=== PATIENT | female | born 1985 | race Caucasian/White ===

== ENCOUNTER 2018-10-24 12:25 | Inpatient (IN) | payer OTHER ==
[~2018-10-24] VITALS: Ht 170.2 cm; Wt 81.6 kg
[2018-10-24 12:56] VITALS: Ht 170.2 cm; Wt 81.6 kg
--- NOTE | 2018-10-24 17:31 | ERD ---
ER Documentation Chief Complaint Chief Complaint pelvic pain dx ectopic yesterday, 7 weeks 2 days HPI 33-year-old female Ab1 presenting for ectopic that was diagnosed at [facility]. She started having pelvic pain 2 days ago. She went to the outside hospital where an ultrasound was done and she was diagnosed with ectopic. However she did not like the surgeon there, so she signed out AMA. She states her pain has improved. She only has mild aching pain in her right pelvis, improved when not moving. Worsened by walking. No associated fever, chills, nausea, vomiting, discharge or vaginal bleeding. ROS All systems reviewed and are negative except as per history of present illness. PMhx/Soc Medical and Surgical Hx: pt denies Medical Hx, pt denies Surgical Hx Hx Alcohol Use: No Hx Substance Use: No Hx Tobacco Use: Yes Smoking Status: Current every day smoker FmHx Family History: No diabetes Physical Exam Vitals Vital Signs Date Temp Pulse Resp B/P (MAP) Pulse Ox O2 O2 Flow FiO2 Time Delivery Rate 10/24/18 98.4 69 18 117/73 96 Room Air 16:20 (88) 10/24/18 98.4 90 18 117/73 96 12:56 (88) Physical Exam Const: No acute distress Head: Atraumatic Eyes: Normal Conjunctiva ENT: Normal External Ears, Nose and Mouth. Neck: Full range of motion. No meningismus. Resp: Clear to auscultation bilaterally Cardio: Regular rate and rhythm, no murmurs Abd: Soft, non tender, non distended. No palpable masses. Normal bowel julieth nds Skin: No petechiae or rashes Back: No midline or flank tenderness Ext: No cyanosis, or edema Neur: Awake and alert Psych: Normal Mood and Affect Result Diagram: 10/24/18 1634 10/24/18 1634 Results 24 hrs Laboratory Tests Test 10/24/18 16:34 White Blood Count 11.8 10^3/ul Red Blood Count 4.72 10^6/ul Hemoglobin 14.2 g/dl Hematocrit 39.4 % Mean Corpuscular Volume 83.5 fl Mean Corpuscular Hemoglobin 30.1 pg Mean Corpuscular Hemoglobin Concent 36.0 g/dl Red Cell Distribution Width 12.3 % Platelet Count 337 10^3/UL Mean Platelet Volume 10.6 fl Immature Granulocytes % 0.400 % Neutrophils % 54.9 % Lymphocytes % 30.9 % Monocytes % 7.6 % Eosinophils % 5.4 % Basophils % 0.8 % Nucleated Red Blood Cells % 0.0 /100WBC Immature Granulocytes # 0.050 10^3/ul Neutrophils # 6.5 10^3/ul Lymphocytes # 3.6 10^3/ul Monocytes # 0.9 10^3/ul Eosinophils # 0.6 10^3/ul Basophils # 0.1 10^3/ul Nucleated Red Blood Cells # 0.0 10^3/ul Sodium Level 141 mmol/L Potassium Level 4.0 mmol/L Chloride Level 107 mmol/L Carbon Dioxide Level 23 mmol/L Anion Gap 11 Blood Urea Nitrogen 11 mg/dl Creatinine 0.66 mg/dl Est Glomerular Filtrat Rate mL/min > 60 mL/min Glucose Level 86 mg/dl Calcium Level 9.4 mg/dl Beta HCG, Quantitative 90522.0 mIU/ml Current Medications Medications Dose Sig/Ever Start Time Status Last (Trade) Ordered Route PRN Stop Time Admin Dose Reason Admin Ondansetron 4 mg BRIDGE ORDER 10/24/18 HCl (Zofran PRN IV 18:00 10/25/18 Inj) NAUSEA/VOMITI 17:59 NG 650 mg ER BRIDGE 10/24/18 Acetaminophen PRN PO 18:00 10/25/18 (Tylenol .MILD PAIN 17:59 Tab) 1-3 OR TEMP Procedures/MDM EMERGENT LABS AND DIAGNOSTIC STUDIES: Lab Results above were reviewed and interpreted by me. CBC: no anemia or evidence of infection BMP: No e/o clinically significant electrolyte abnormality severe acidosis, alkalosis, renal failure, diabetic ketoacidosis Beta-hCG pending Radiology Results as interpreted by Radiology below were reviewed by Roseline Garcia MD: Pelvic ultrasound shows a viable 8-week ectopic in the right adnexa with no free fluid Initial Nursing notes reviewed. Previous Medical Records requested via the Electronic Health Record. EMERGENCY DEPARTMENT COURSE / MEDICAL DECISION MAKING: Patient is presenting with of right-sided ectopic , hemodynamically stable with no evidence of rupture. Patient will require admission for surgery. Spoke with the DEVELOPMENTAL SERVICES WORKER on-call who has accepted her for admission. Accepting Care Team: Current data and ongoing care discussed. Time: Time of admission Primary Provider: Dr. Carcamo Outstanding Data: none Departure Diagnosis: Primary Impression: Ectopic Location of ectopic : tubal Intrauterine status: without intrauterine Laterality: right Qualified Codes: O00.101 - Right tubal without intrauterine Condition: Serious YASMANY GARCIA MD Oct 24, 2018 17:31
[2018-10-24] MEDS ORDERED: ACETAMINOPHEN 325 MG TAB PO PRN (18:00)
[2018-10-24] MEDS ORDERED: ONDANSETRON 4 MG INJ IV PRN (18:00)
[2018-10-24 20:00] VITALS: BP 105/56; PULSE 60; RESP 17
[2018-10-24] MEDS ORDERED: DEXTROSE 5%-0.45% NACL 1,000 ML IV SCH (23:00)
[2018-10-24] MEDS ORDERED: DEXTROSE 5%-LR 1,000 ML IV SCH (23:30)
[2018-10-25] VITALS (17 sets, daily range): BP systolic 95–115; BP diastolic 49–76; PULSE 72–95; RESP 18–28
--- NOTE | 2018-10-25 03:05 | HP ---
Date/Time of Note Date/Time of Note DATE: 10/24/18 TIME: 23:17 Assessment/Plan VTE Prophylaxis Risk score (from Ns)>0 risk: 2 SCD applied (from Ns): No SCD contraindicated: low risk/ambulating Pharmacological prophylaxis: NA/contraindicated Pharm contraindication: low risk/ambulating Lines/Catheters IV [facility]from [facility] Saline Lock Central line still needed: No Urinary Cath still in place: No Assessment/Plan Hospital Course Right lower abdominal pain, ectopic and right side. Size of ectopic gestation more than 3.5 cm with presence of echo. Patient currently hemodynamically stable. Discussed regarding management. Due to the size of ectopic gestation more than 3.5 cm and echo recommended surgical management. Patient is not a good candidate for medical management. She does not have any regional sales manager as outpatient to have a follow-up, does not appear to be reliable to have a follow-up with serial hCG. However I discussed about medical management option as well however due to size of ectopic gestation not a good candidate for medical management. Procedure including laparoscopic right salpingostomy possible salpingectomy discussed with the patient. Risk and benefit of procedure including risk of infection, bleeding, risk of anesthesia, risk of blood transfusion including but not limited to blood borne infection including HIV, hepatitis B and C and transfusion reaction discussed with patient in detail Patient verbalized understanding. She desires to proceed with surgical management versus methotrexate treatment. All questions were answered to patient's best satisfaction consent was signed. Patient asked of blood transfusion in case of emergency. She was booked for diagnostic laparoscopy, laparoscopic salpingostomy possible salpingectomy possible blood transfusion possible open or any other indicated procedure Problems: (1) Ectopic Status: Acute Qualifiers: Location of ectopic : tubal Intrauterine status: without intrauterine Laterality: right Qualified Codes: O00.101 - Right tubal without intrauterine Result Diagram: 10/24/18 1634 10/24/18 1634 Results 24hrs Laboratory Tests Test 10/24/18 16:34 White Blood Count 11.8 H Red Blood Count 4.72 Hemoglobin 14.2 Hematocrit 39.4 Mean Corpuscular Volume 83.5 Mean Corpuscular Hemoglobin 30.1 Mean Corpuscular Hemoglobin Concent 36.0 Red Cell Distribution Width 12.3 Platelet Count 337 Mean Platelet Volume 10.6 H Immature Granulocytes % 0.400 Neutrophils % 54.9 Lymphocytes % 30.9 Monocytes % 7.6 Eosinophils % 5.4 Basophils % 0.8 Nucleated Red Blood Cells % 0.0 Immature Granulocytes # 0.050 H Neutrophils # 6.5 Lymphocytes # 3.6 H Monocytes # 0.9 Eosinophils # 0.6 H Basophils # 0.1 Nucleated Red Blood Cells # 0.0 Sodium Level 141 Potassium Level 4.0 Chloride Level 107 Carbon Dioxide Level 23 Anion Gap 11 Blood Urea Nitrogen 11 Creatinine 0.66 Est Glomerular Filtrat Rate mL/min > 60 Glucose Level 86 Calcium Level 9.4 Beta HCG, Quantitative 53443.0 HPI/ROS Admit Date/Time Admit Date/Time Oct 24, 2018 at 17:36 Hx of Present Illness October 24, 2018 33-year-old G3, P1 with amenorrhea for 8 weeks and 4 days and known diagnosis of ectopic , presented to emergency room at [facility] for management of ectopic . Patient was seen in the emergency room in [facility] yesterday due to right-sided lower abdominal pain and early and was noted to have ectopic at about 8 weeks. She was in the process of having the surgery however she did not like the surgeon and desired to sign AMA and presented to [facility] for management. Patient denies having any vaginal bleeding, shortness of breath, chest pain, dizziness, lightheadedness or any other complaint except moderate pain in the lower abdomen. She had a pelvic ultrasound here that showed evidence of 8 weeks with echo and yolk sac in the right adnexa. She was admitted with diagnosis of ectopic . ROS Constitutional: no complaints; No improved, No chills, No diaphoresis, No disoriented, No fatigue, No febrile, No nausea, No poor po, No weight change, No other Eyes: No no complaints, No pain, No discharge, No redness, No visual change, No other ENT: No no complaints, No bleeding, No pain, No congestion, No discharge, No dysphagia, No sore throat, No other Respiratory: No no complaints, No pain, No cough, No pleuritic pain, No shortness of breath, No sputum, No wheezing, No other Cardiovascular: No no complaints, No chest pain, No edema, No lightheadedness, No orthopenea, No palpitations, No paroxysmal nocturnal dyspnea, No other Gastrointestinal: pain, other (Lower abdominal pain in the right side with radiation to the thigh.); No no complaints, No blood, No constipation, No decreased appetite, No diarrhea, No flatus, No nausea, No passing stool, No vomiting Genitourinary: No no complaints, No bleeding, No dysuria, No discharge, No flank pain, No hematuria, No other Musculoskeletal: No no complaints, No back pain, No bone/joint pain, No neck pain, No restricted range of motion, No swelling, No other Skin: No no complaints, No bruising, No erythema, No laceration, No pruritis, No rash, No skin lesions, No other Neurologic: No no complaints, No confusion, No dizziness, No focal-weakness, No headache, No syncope, No seizure, No other Endocrine: No no complaints, No polyuria, No polydypsia, No dry skin, No temp i ntolerance, No weight change, No other Lymphatic: No no complaints, No adenopathy, No tender nodes, No lymphadema, No other PMH/Family/Social Past Medical History Denies any medical problems in the past Medications Current Medications Ondansetron HCl (Zofran Inj) 4 mg BRIDGE ORDER PRN IV NAUSEA/VOMITING; Start 10/24/18 at 18:00; Stop 10/25/18 at 17:59 Acetaminophen (Tylenol Tab) 650 mg ER BRIDGE PRN PO .MILD PAIN 1-3 OR TEMP; Start 10/24/18 at 18:00; Stop 10/25/18 at 17:59 Dextrose/Lactated Ringer's 1,000 ml @ 125 mls/hr Q8H IV ; Start 10/24/18 at 23:30; Status UNV Coded Allergies: erythromycin base (Verified Allergy, Unknown, 10/24/18) Past Surgical History Past Surgical Hx: no surgical history Family History Significant Family History: no pertinent family hx Social History Alcohol Use: none Smoking Status: Unknown if ever smoked Drug Use: none Exam/Review of Systems Vital Signs Vitals Vital Signs Date Temp Pulse Resp B/P (MAP) Pulse Ox O2 O2 Flow FiO2 Time Delivery Rate 10/24/18 98.1 60 17 105/56 99 20:00 (72) 10/24/18 Room Air 16:20 Exam Constitutional: alert, oriented, well developed Psych: no complaints, nl mood/affect, anxiety Head: normocephalic, atraumatic Eyes: nl conjunctiva, EOMI, nl lids ENMT: nl external ears & nose, nl lips & teeth, nl nasal mucosa & septum Neck: supple, non-tender Respiratory: clear to auscultation, normal air movement Cardiovascular: regular rate and rhythm, nl pulses Gastrointestinal: soft, nl liver, spleen, tender, other (Tenderness in the right lower abdomen. No rebound tenderness, no guarding, no rigidity no evidence of acute abdomen. Abdomen is soft.) Genitourinary - Female: other (Sterile speculum examination: Cervix appears normal. Closed. No abnormal vaginal discharge. No blood in the vault. Bimanual examination: Uterus normal size and nontender. There is some moderate tenderness in the right adnexa. No tenderness in left adnexa. No fullness in the left adnexa.) Musculoskeletal: nl extremities to inspection, nl gait and stance Extremities: normal pulses Neurological: DAIRY NUTRITION CONSULTANT II-XII intact, nl mental status Skin: nl turgor Additional Comments PROCEDURE: US OB. CLINICAL INDICATION: Vaginal bleeding. TECHNIQUE: Transabdominal and transvaginal sonographic evaluation of the uterus was performed. COMPARISON: None. FINDINGS: Uterus is anteverted and measures 10.5 x 5.8 x 7.4 cm. No intrauterine gestation al sac is seen. Right ovary measures 3.5 x 2.7 x 2.4 cm. There is a 4.9 x 3.6 x 4.2 cm echogenic mass with central cystic component containing pole and yolk sac abutting the right ovary. [place]-rump length measures 15.8 millimeter corresponding to gestational age of 8 weeks. heart rate of 171 beats per minute was detected during this examination. Left ovary measures 4.3 x 2.3 x 2.3 cm. There is no free pelvic fluid. IMPRESSION: 1. Findings consistent with right adnexal ectopic gestation containing yolk sac and living pole. 2. No visible intrauterine . 3. No free pelvic fluid. Findings were discussed with Dr. Garcia by Dr. Barron at 05:55 p.m. on 10/24/2018. RPTAT:HAJM KENIA COLEMAN MD Oct 25, 2018 03:05
[2018-10-25] MEDS ORDERED: CEFAZOLIN 2 GM/50 ML (PMX) 50 ML IVPB ONE (03:30)
[2018-10-25] MEDS: LACTATED RINGER'S 1,000 ML IV SCH ×5 (04:23→20:55)
--- NOTE | 2018-10-25 16:39 | PREAC ---
Date/Time of Note Date/Time of Note DATE: 10/25/18 TIME: 16:38 Anesthesia Eval and Record Evaluation Time Pre-Procedure Interview DATE: 10/25/18 TIME: 16:38 Age 33 Sex female NPO: 8 hrs Preoperative diagnosis ectopic Planned procedure laparoscopic ectopic removal, salpingectomy Past Medical History Past Medical History: None Surgery & Anesthesia Issues No known issue Meds Anticoagulation: No Beta Stephen within 24 hr: No Reason Beta Stephen not given: Pt. not on B-Stephen Current Medications Ondansetron HCl (Zofran Inj) 4 mg BRIDGE ORDER PRN IV NAUSEA/VOMITING; Start 10/24/18 at 18:00; Stop 10/25/18 at 17:59 Acetaminophen (Tylenol Tab) 650 mg ER BRIDGE PRN PO .MILD PAIN 1-3 OR TEMP; Start 10/24/18 at 18:00; Stop 10/25/18 at 17:59 Lactated Ringer's 1,000 ml @ 125 mls/hr Q8H IV Last administered on 10/25/18at 13:02; Admin Dose 125 MLS/HR; Start 10/25/18 at 03:05 Meds reviewed: Yes Allergies Coded Allergies: erythromycin base (Verified Allergy, Unknown, 10/24/18) Allergies Reviewed: Yes Labs/Studies Labs Reviewed: Reviewed by anesthesiologist Result Diagram: 10/25/18 0353 10/24/18 1634 Laboratory Tests 10/25/18 03:53 Blood Bank Test 10/25/18 03:53 Antibody Screen NEGATIVE Blood Type B POSITIVE test: Positive Pre-procedure Exam Last vitals Vital Signs Date Temp Pulse Resp B/P (MAP) Pulse Ox O2 O2 Flow FiO2 Time Delivery Rate 10/25/18 98.0 72 18 106/54 95 Room Air 14:51 (71) Airway: Adequate mouth opening, Adequate thyromental dist Mallampati: Mallampati II Teeth: Normal Lung: Normal Heart: Normal ASA Physical Status ASA physical status: 2 Emergency: E Planned Anesthetic General/MAC: ETT Planned Pain Management Parenteral pain med Pre-operative Attestations Prior to commencing anesthesia and surgery, the patient was re-evaluated, there was verification of: *The patient's identity *The results of appropriate recent lab work and preoperative vital signs *The above evaluation not changing prior to induction *Anesthetic plan, risk benefits, alternative and complications discussed with patient/family; questions answered; patient/family understands, accepts and wishes to proceed. SARA DEL CASTILLO Oct 25, 2018 16:39
[2018-10-25] MEDS ORDERED: NEOSTIGMINE 3 MG/3 ML SYRINGE ONE (16:40)
[2018-10-25] MEDS ORDERED: GLYCOPYRROLATE 0.4 MG INJ ONE (16:40)
[2018-10-25] MEDS ORDERED: LIDOCAINE 2% (SDV) 5 ML INJ ONE (16:43)
[2018-10-25] MEDS ORDERED: ROCURONIUM 50 MG INJ ONE (16:43)
[2018-10-25] MEDS ORDERED: PROPOFOL 100 ML ONE (16:43)
[2018-10-25] MEDS ORDERED: DEXAMETHASONE 4 MG/ML 5 ML INJ ONE (16:57)
[2018-10-25] MEDS ORDERED: ONDANSETRON 4 MG INJ ONE (16:57)
[2018-10-25] MEDS ORDERED: CEFAZOLIN 1 GM INJ ONE (16:59)
[2018-10-25] MEDS ORDERED: BUPIVACAINE 0.25%/EPI (SDV) 30 ML INJ ONE (17:17)
[2018-10-25] MEDS ORDERED: HEMOSTATIC MATRIX/ THROMBIN 1 EA SYG ZFS ONE (18:24)
--- NOTE | 2018-10-25 18:50 | OPR ---
Date/Time of Note Date/Time of Note DATE: 10/25/18 TIME: 18:48 Operative Report Free Text/Dictation October 25, 2018 Procedure Date: Oct 25, 2018 Preoperative Diagnosis 1. Right tubal Postoperative Diagnosis Right pre-ruptured tubal Peritubal extensive adhesions as well as periovarian and adhesion in the posterior cul-de-sac and perihepatic adhesion consistent with likely prior episodes of PID Evidence of Rudi chauhan seen Operation/Procedure Performed 1. Laparoscopic right salpingectomy 2. Lysis of adhesion Surgeon see signature line Strip Stamp Straightener Surgical scrub Anesthesia Type: general Anesthesiologist: SARA DEL CASTILLO Estimated Blood Loss: 50 - 100 ml's Transfusion none Specimen Right tube Grafts/Implants none Tubes/Drains N/A Complications none Pt Condition Post Procedure: stable Disposition: PACU Indications Right 4.5 cm ectopic Procedure Description 33-year-old female with the right lower abdominal pain and new episode of , 8 weeks of amenorrhea and right tubal at 8 weeks gestation based on CRL seen in the right tube, candidate for laparoscopic salpingectomy possible salpingectomy after discussion about the options and risk and benefit in detail. Due to size of the right ectopic gestation recommended surgical management. Patient desires to proceed with surgery. Risk and benefit of surgery including risk of infection, bleeding, damage to surrounding structures including bowel and bladder and risk of conversion to open procedure and risk of blood transfusion including but not limited to blood borne infection including HIV, hepatitis B and C and transfusion reaction discussed with patient in detail and informed consent was obtained. Patient verbalized understanding all above risks. She desires to proceed. She received [address] to the OR and after adequate general endotracheal anesthesia she was prepped and draped in the dorsolithotomy position. Timeout procedure completed and patient was identified correctly. After prepped and draped in the dorsal lithotomy position first a bivalve speculum placed inside the vagina. Anterior lip of the cervix grasped using tenaculum. Uterine depth was measured using uterine sound was noted to be 8 cm. Internal cervical os was easily accommodate Hegar dilator #4. Then a HUMI manipulator was passed through the cervix into the uterine cavity and its balloon was inflated and transfixed. The tenaculum was removed from anterior lip of the cervix. Gloves was changed and then attention was turned to the abdomen. After injection about 8 cc quarter percent Marcaine with epi in the umbilicus area a 5 mm incision was made inside the umbilicus. Using a 5 mm trocar Optiview the past through the umbi lical incision under direct visualization, intra-abdominal cavity entered without any complication. Insufflation started using CO2 gas. After adequate insufflation about 3 and half liters of CO2 gas the pelvis evaluated. There was about 10 cc of blood in the pelvis. Ectopic tubal in the right side noted to be size of about 4 and half centimeter that appeared to be pre- ruptured. There was some oozing from the pre-ruptured tube in the right side. There was also evidence of extensive adhesion around the both tubes and ovaries noted as well as in the posterior cul-de-sac. Then upper abdomen evaluated. Liver identified. There is evidence of perihepatic adhesions as well. there was also extensive filmy peritubal adhesion in the left side as well. The tube in the left side did not also appear to be intact and normal looking due to extensive peritubal and periovarian adhesions. Intraoperative findings was consistent with likely prior multiple episodes of PID as there was perihepatic adhesion consistent with Fawn Grewal noted. At this point after negative transillumination test a 5 mm incision was made in the left lower quadrant and then under direct visualization a 5 Asif trocar passed through the left lower quadrant into the abdominal cavity and procedure proceeded in a similar fashion the right side and after negative transmission test a 5 mm trocar as well as placed in the right lower quadrant under direct visualization at 5 fingerbreadth above the anterior superior iliac spine. Harmonic at this point procedure proceeded by performing salpingectomy in the right side. Using scalpel the tube in the right side that had ectopic gestation the right side was excised and the resected tube that also incorporated accompanied ectopic gestation was placed in the anterior cul-de-sac. there was also some adhesion bands around the ovary and tube in the right side that was also excised using harmonic scalpel. Then hemostasis of the resected side and the small remainder of the excised tube in the right side was obtained using harmonic scalpel. Then the resected tube with associated tubal was placed in the anterior cul-de-sac. Irrigation of the abdomen and pelvis done using warm normal saline. Reevaluation of the resected site of the stump of the right tube with a negative pressure check confirmed good hemostasis. FloSeal was then applied over the resected site. Then the upper abdomen and the rest of the abdomen and pelvis evaluated. No other pathology noted. Then the left lower 5 mm trocar removed and the skin incision was extended to. 12 mm trocar. this trocar was placed under direct visualization without any complication. Then the Endobag was introduced through this trocar site. The resected right tube that had associated ectopic gestation was placed inside the Endobag. It was then removed through the 12 mm trocar site and then left lower abdomen. This specimen was sent to pathology. Then the fascia in 12 mm trocar site in the left upper abdomen was repaired using two 1-0 Vicryl using Endo suture. Then again after reassurance about the hemostasis of operative site then the 2 other trocar site in the umbilicus and right lower abdomen removed after adequate evacuation of CO2 gas while the patient was in the Trendelenburg position and anesthesia was giving 5 big breath. Then the trocar site in the umbilicus and right and left lower quadrant was repaired using 3-0 Monocryl and at the end Dermabond was applied in all 3 trocar site. Then attention was turned to the vagina where the HUMI manipulator was removed after deflation of its balloon. Then the tenaculum site over the anterior lip of the cervix evaluated there was no bleeding and hemostasis was complete. Then all instruments removed from the vagina. Patient tolerated the procedure well. Sponge lap and instrument count and needle count were correct x2 patient was then transferred to recovery room in stable condition of note that Chow catheter was draining clear yellow urine. EBL 50 cc. KENIA COLEMAN MD Oct 25, 2018 18:50
--- NOTE | 2018-10-25 18:55 | PAC ---
Date/Time of Note Date/Time of Note DATE: 10/25/18 TIME: 18:54 Post-Anesthesia Notes Post-Anesthesia Note Last documented vital signs Vital Signs Date Temp Pulse Resp B/P (MAP) Pulse Ox O2 O2 Flow FiO2 Time Delivery Rate 10/25/18 98.0 72 18 106/54 95 Room Air 1854 (71) Activity: WNL Respiratory function: WNL Cardiovascular function: WNL Mental status: Baseline Pain reasonably controlled: Yes Hydration appropriate: Yes Nausea/Vomiting absent: Yes SARA DEL CASTILLO Oct 25, 2018 18:55
[2018-10-25] MEDS ORDERED: MEPERIDINE 25 MG INJ IV PRN (19:00)
[2018-10-25] MEDS ORDERED: LABETALOL HCL 20MG INJ IV PRN (19:00)
[2018-10-25] MEDS ORDERED: HYDROmorphONE 1 MG/5 ML IV SYRINGE IV PRN ×3 (19:00)
[2018-10-25] MEDS ORDERED: MIDAZOLAM 1 MG/ML 2 ML INJ IV PRN (19:00)
[2018-10-25] MEDS ORDERED: hydrALAzine 20 MG INJ IV PRN (19:00)
[2018-10-25] MEDS ORDERED: ONDANSETRON 4 MG INJ IV PRN (19:00)
[2018-10-25] MEDS ORDERED: KETOROLAC 30 MG INJ IV PRN (19:00)
[2018-10-25] MEDS ORDERED: DIPHENHYDRAMINE 50 MG INJ IV PRN (19:00)
[2018-10-25] MEDS ORDERED: METOCLOPRAMIDE 10 MG INJ IV PRN (19:00)
[2018-10-25] MEDS ORDERED: EPHEDrine 25 MG/5 ML SYG IV PRN (19:00)
[2018-10-25] MEDS ORDERED: FENTAnyl 50 MCG/ML VIAL IV PRN ×3 (19:00)
[2018-10-25] MEDS ORDERED: ALBUTEROL 0.083% (NEB) 2.5 MG/3 ML AMP HHN PRN (19:00)
[2018-10-25] MEDS ORDERED: FENTAnyl 50 MCG/ML VIAL ONE (19:03)
[2018-10-26 02:00] VITALS: BP 108/55; PULSE 94; RESP 15
[2018-10-26] MEDS: HYDROCODONE/APAP (5/325) TAB PO PRN ×3 (02:29→11:34)
[2018-10-26] MEDS: LACTATED RINGER'S 1,000 ML IV SCH ×2 (07:06→15:42)
[2018-10-26 07:49] VITALS: BP 109/71; PULSE 85; RESP 18
[2018-10-26] MEDS: IBUPROFEN 600 MG TAB PO PRN ×2 (08:45→16:33)
[2018-10-26 13:48] VITALS: BP 103/57; PULSE 80; RESP 18
--- NOTE | 2018-10-26 17:15 | PD.PPDC ---
LEAD GENERATION SPECIALIST Discharge Instruction Condition [id number] Patient Condition: [id number] Good Diet [id number] Diet: [id number] Resume Regular Diet Activity/Restrictions [id number] Restrictions: [id number] Minimize Walking Minimize Stair-climbing No Sexual Activity Nothing in the Vagina No [place] No Tampons, douche Follow-up Follow-up with Physician: 1, Week/Weeks Provider Information: Follow up with Narciso Reyes in 7 -[address] Mario Alberto Randolph MD Return to clinic for [id number] E BUSINESS MANAGER Instructions: Guiyz9y Fever greater than 101 Chills Worsening abdominal pain Excessive Vaginal Bleeding More than 2 pads per hour Unable to tolerate diet [id number] Surgical Instructions: [id number] Incisional Drainage Incisional Redness KENIA COLEMAN MD Oct 26, 2018 17:15
--- NOTE | 2018-10-26 17:19 | PN ---
Date/Time of Note Date/Time of Note DATE: 10/26/18 TIME: 17:16 Assessment/Plan VTE Prophylaxis Risk score (from Nsg)>0 risk: 1 SCD applied (from Nsg): Yes SCD contraindicated: low risk/ambulating Pharmacological prophylaxis: NA/contraindicated Pharm contraindication: low risk/ambulating Lines/Catheters IV Catheter Type (from Nrs): Peripheral IV Central line still needed: No Urinary Cath still in place: No Assessment/Plan Hospital Course Right lower abdominal pain, ectopic and right side. Size of ectopic gestation more than 3.5 cm with presence of echo. Patient currently hemodynamically stable. Discussed regarding management. Due to the size of ectopic gestation more than 3.5 cm and echo recommended surgical management. Patient is not a good candidate for medical management. She does not have any manager marketing sales as outpatient to have a follow-up, does not appear to be reliable to have a follow-up with serial hCG. However I discussed about medical management option as well however due to size of ectopic gestation not a good candidate for medical management. Procedure including laparoscopic right salpingostomy possible salpingectomy discussed with the patient. Risk and benefit of procedure including risk of infection, bleeding, risk of anesthesia, risk of blood transfusion including but not limited to blood borne infection including HIV, hepatitis B and C and transfusion reaction discussed with patient in detail Patient verbalized understanding. She desires to proceed with surgical management versus methotrexate treatment. All questions were answered to patient's best satisfaction consent was signed. Patient asked of blood transfusion in case of emergency. She was booked for diagnostic laparoscopy, laparoscopic salpingostomy possible salpingectomy possible blood transfusion possible open or any other indicated procedure Result Diagram: 10/25/18 0353 10/24/18 1634 Results 24hrs Laboratory Tests Test 10/26/18 10:07 Beta HCG, Quantitative 43138.0 Subjective 24 Hr Interval Summary Free Text/Dictation 10/26/2018 Denies any complaint. Ambulating. Urinated. Passed flatus and had bowel movement. Denies any fever or chills. Denies any nausea vomiting. Tolerated diet very well. Had minimal scant vaginal bleeding. Constitutional: no complaints; No improved, No chills, No diaphoresis, No disoriented, No febrile, No poor po, No requiring IVF, No requiring O2, No other Eyes: no complaints; No pain, No discharge, No redness, No visual change, No other ENT: no complaints; No bleeding, No pain, No congestion, No discharge, No dysphagia, No sore throat, No other Respiratory: no complaints; No pain, No cough, No pleuritic pain, No shortness of breath, No sputum, No wheezing, No other Cardiovascular: no complaints; No chest pain, No edema, No lightheadedness, No orthopenea, No palpitations, No paroxysmal nocturnal dyspnea, No other Gastrointestinal: no complaints; No pain, No blood, No constipation, No decreased appetite, No diarrhea, No flatus, No nausea, No passing stool, No vomiting, No other Genitourinary: No no complaints, No bleeding, No dysuria, No discharge, No flank pain, No hematuria, No other Skin: No no complaints, No bruising, No erythema, No laceration, No pruritis, No rash, No skin lesions, No other Neurologic: No no complaints, No confusion, No dizziness, No focal-weakness, No headache, No syncope, No seizure, No other Endocrine: No no complaints, No polyuria, No polydypsia, No dry skin, No temp intolerance, No other Lymphatic: No no complaints, No adenopathy, No tender nodes, No lymphadema, No other Psychological: No no complaints, No nl mood/affect, No anxiety, No confusion, No depression, No suicidal, No other Immunologic: No no complaints, No immunodeficiency, No pruritis, No rhinitis, No urticaria, No other Exam/Review of Systems Exam Vitals Vital Signs Date Temp Pulse Resp B/P (MAP) Pulse Ox O2 O2 Flow FiO2 Time Delivery Rate 10/26/18 98.8 80 18 103/57 99 13:48 (72) 10/25/18 Room Air 19:53 Intake and Output 10/25/18 10/25/18 10/26/18 1515:00 23:00 07:00 IntakeIntake Total 1000 ml 2475 ml 1850 ml OutputOutput Total 800 ml 1290 ml 1500 ml BalanceBalance 200 ml 1185 ml 350 ml Constitutional: alert, oriented, well developed Psych: no complaints, nl mood/affect Head: normocephalic, atraumatic Eyes: nl conjunctiva, EOMI ENMT: nl external ears & nose, nl lips & teeth Respiratory: clear to auscultation, normal air movement Cardiovascular: regular rate and rhythm, nl pulses Gastrointestinal: soft, nl liver, spleen, other (Minimal appropriate tenderness in the lap scopic incision. No rebound tenderness, no guarding, no rigidity, no drainage from the incisions, no evidence of erythema or hematoma around the incisions.) Musculoskeletal: nl extremities to inspection, nl gait and stance Neurological: CATTLE SPRAYER II-XII intact, nl mental status, nl speech, nl strength Skin: nl turgor, rash or lesions Additional Comments Laboratory Tests Test 10/26/18 10:07 Beta HCG, Quantitative 26563.0 mIU/ml Current Medications Medications Dose Sig/Ever Start Time Status Last (Trade) Ordered Route PRN Stop Time Admin Dose Reason Admin Ondansetron 4 mg BRIDGE ORDER 10/24/18 DC HCl (Zofran PRN IV 18:00 10/25/18 Inj) NAUSEA/VOMITI 17:59 NG 650 mg ER BRIDGE 10/24/18 DC Acetaminophen PRN PO 18:00 10/25/18 (Tylenol .MILD PAIN 17:59 Tab) 1-3 OR TEMP 1,000 ml @ Q8H IV 10/24/18 DC Dextrose/Sodi 125 mls/hr 23:00 10/24/18 um Chloride 23:16 1,000 ml @ Q8H IV 10/24/18 DC 10/24/18 Dextrose/Lact 125 mls/hr 23:30 10/25/18 23:30 125 ated 04:15 MLS/HR Ringer's Lactated 1,000 ml @ Q8H IV 10/25/18 DC 10/25/18 Ringer's 125 mls/hr 03:05 10/25/18 19:37 125 19:50 MLS/HR Cefazolin 50 ml @ PRE-OP ONCE 10/25/18 DC Sodium/ 100 mls/hr IVPB 03:30 10/25/18 Dextrose 03:59 Propofol 100 ml @ ud STK-MED 10/25/18 DC ONCE .ROUTE 16:43 10/25/18 16:44 Lidocaine 100 mg STK-MED 10/25/18 DC (Xylocaine ONCE .ROUTE 16:43 10/25/18 2% (Sdv)) 16:44 Rocuronium 50 mg STK-MED 10/25/18 DC [place] ONCE .ROUTE 16:43 10/25/18 (Zemuron) 16:44 Fentanyl 5 ml @ ud STK-MED 10/25/18 DC ONCE .ROUTE 16:44 10/25/18 16:45 20 mg STK-MED 10/25/18 DC Dexamethasone ONCE .ROUTE 16:57 10/25/18 (Decadron) 16:58 Ondansetron 4 mg STK-MED 10/25/18 DC HCl (Zofran ONCE .ROUTE 16:57 10/25/18 Inj) 16:58 Cefazolin 1 gm STK-MED 10/25/18 DC Sodium ONCE .ROUTE 16:59 10/25/18 (Ancef) 17:00 Bupivacaine 30 ml STK-MED 10/25/18 DC 10/25/18 HCl/ ONCE .ROUTE 17:17 10/25/18 17:40 30 ML Epinephrine 17:18 Bitart (Marcaine 0.25%/ Epi (Sdv) 30 ml) 1 ea STK-MED 10/25/18 DC 10/25/18 Microfibrille ONCE ZFS 18:24 10/25/18 18:24 1 EA r Collagen 18:25 Hemostat (Surgiflo/ Thrombin Combo) 0.2 mg PACU PRN 10/25/18 DC Hydromorphone IV MILD PAIN 19:00 10/25/18 HCl 1-3 19:50 (Dilaudid) 0.4 mg PACU PRN 10/25/18 DC Hydromorphone IV MOD PAIN 19:00 10/25/18 HCl 4-6 19:50 (Dilaudid) 0.6 mg PACU PRN 10/25/18 DC Hydromorphone IV SEVERE 19:00 10/25/18 HCl PAIN 7-10 19:50 (Dilaudid) Fentanyl 25 mcg PACU ORDER 10/25/18 DC (Sublimaze) PRN IV MILD 19:00 10/25/18 PAIN 1-3 19:50 Fentanyl 50 mcg PACU ORDER 10/25/18 DC 10/25/18 (Sublimaze) PRN IV MOD 19:00 10/25/18 19:40 50 MCG PAIN 4-6 19:50 Fentanyl 75 mcg PACU ORDER 10/25/18 DC (Sublimaze) PRN IV 19:00 10/25/18 SEVERE PAIN 19:50 7-10 Ketorolac 30 mg PACU ORDER 10/25/18 DC Tromethamine PRN IV FOR 19:00 10/25/18 (Toradol) PAIN AFTER IV 19:50 NARCOTIC MED Ondansetron 4 mg PACU ORDER 10/25/18 DC HCl (Zofran PRN IV 19:00 10/25/18 Inj) NAUSEA/VOMITI 19:50 NG 10 mg PACU ORDER 10/25/18 DC Metoclopramid PRN IV 19:00 10/25/18 e HCl NAUSEA/VOMITI 19:50 (Reglan) NG Labetalol 5 mg PACU ORDER 10/25/18 DC HCl PRN IV HIGH 19:00 10/25/18 (Labetalol) BLOOD 19:50 PRESSURE Hydralazine 5 mg PACU ORDER 10/25/18 DC HCl PRN IV HIGH 19:00 10/25/18 (Apresoline) BLOOD 19:50 PRESSURE Ephedrine 5 mg PACU ORDER 10/25/18 DC Sulfate PRN IV 19:00 10/25/18 BLOOD 19:50 PRESSURE SUPPORT Albuterol 2.5 mg PACU ORDER 10/25/18 DC (Proventil PRN HHN 19:00 10/25/18 0.083% (Neb)) .WHEEZING 19:50 Meperidine 25 mg PACU ORDER 10/25/18 DC HCl PRN IV 19:00 10/25/18 (Demerol) .RIGORS 19:50 25 mg PACU ORDER 10/25/18 DC Diphenhydrami PRN IV 19:00 10/25/18 ne HCl .PRURITUS 19:50 (Benadryl) Midazolam 0.5 mg PACU ORDER 10/25/18 DC HCl PRN IV 19:00 10/25/18 (Versed) .ANXIETY 19:50 Fentanyl 100 mcg STK-MED 10/25/18 DC (Sublimaze) ONCE .ROUTE 19:03 10/25/18 19:04 Lactated 1,000 ml @ Q10H IV 10/25/18 10/26/18 Ringer's 100 mls/hr 19:42 07:06 100 MLS/HR Ibuprofen 600 mg Q8H PRN 10/25/18 10/26/18 (Motrin) PO MILD 20:00 16:33 600 MG PAIN(1-3)OR ELEVATED TEMP 1 tab Q4H PRN 10/25/18 10/26/18 Acetaminophen PO PAIN 20:00 11:34 1 TAB / LEVEL 6-10 Hydrocodone Bitart ([place] (5/325)) Laboratory Tests Test 10/26/18 10:07 Beta HCG, Quantitative 26201.0 Results Results 24hrs Laboratory Tests Test 10/26/18 10:07 Beta HCG, Quantitative 01111.0 Medications Medication Current Medications Lactated Ringer's 1,000 ml @ 100 mls/hr Q10H IV Last administered on 10/26/18at 07:06; Admin Dose 100 MLS/HR; Start 10/25/18 at 19:42 Ibuprofen (Motrin) 600 mg Q8H PRN PO MILD PAIN(1-3)OR ELEVATED TEMP Last administered on 10/26/18at 16:33; Admin Dose 600 MG; Start 10/25/18 at 20:00 Acetaminophen/ Hydrocodone Bitart ([place] (5/325)) 1 tab Q4H PRN PO PAIN LEVEL 6-10 Last administered on 10/26/18at 11:34; Admin Dose 1 TAB; Start 10/25/18 at 20:00 KENIA COLEMAN MD Oct 26, 2018 17:19
== END 2018-10-26 18:10 | disposition home or self-care (01) | DRG 819 ==
LOC: E/R 12:25 → PP2 17:36
PROVIDERS: ADMIT Obstetrics & Gynecology; ATTEND Obstetrics & Gynecology
PROC: 10T24ZZ Resection of Products of Conception, Ectopic, Percutaneous Endoscopic Approach (ICD-10-PCS; 2018-10-25)
PROC: 0UN54ZZ Release Right Fallopian Tube, Percutaneous Endoscopic Approach (ICD-10-PCS; 2018-10-25)
PROC: 0UN04ZZ Release Right Ovary, Percutaneous Endoscopic Approach (ICD-10-PCS; 2018-10-25)
PROC: 0UB54ZZ Excision of Right Fallopian Tube, Percutaneous Endoscopic Approach (ICD-10-PCS; principal; 2018-10-25 12:00)
DX: O00.101 Right tubal pregnancy without intrauterine pregnancy (principal); N73.6 Female pelvic peritoneal adhesions (postinfective)
CPT/HCPCS: 36415; 76801; 76817; 80048; 84702; 84703; 85025; 86850; 86900; 86901; 88305; J0690; J1100; J1885; J2405; J2710; J3010; J7042; J7120; J7121